=== PATIENT | female | born 1950 | race African-American/Black ===

== ENCOUNTER 2018-03-12 06:19 | Day surgery (SDC) | payer MEDICARE, OTHER ==
[~2018-03-12 06:19] MED LIST: BESIFLOXACIN HCL 0.6% OPH SUSP 5 ML BOTTLE OS PRN; BUPIVACAINE HCL 0.75% INJ/PF (7.5 MG/1 ML) 10 ML SDV OS PRN; KETOROLAC TROMETHAMINE 0.45% 4 DROP/0.4 ML DROPERETTE OS PRN; LIDOCAINE 4% INJ/PF (40 MG/ML) 5 ML AMPUL OS PRN
[2018-03-12] MEDS: TETRACAINE HCL 0.5% OPH SOLN 0.6 ML DROPERETTE OS PRN ×2 (06:51→07:18)
[2018-03-12] MEDS: CYCLOPENTOLATE 0.2%/PHENYLEPHRINE 1% OPH SOLN 2 ML OS PRN ×3 (06:52→07:18)
[2018-03-12] MEDS: TROPICAMIDE 1% OPH SOLN 3 ML OS PRN ×3 (06:52→07:18)
[2018-03-12] MEDS ORDERED: FENTANYL CITRATE INJ/PF 100 MCG/2 ML AMPUL ONE (06:53)
[2018-03-12] MEDS ORDERED: MIDAZOLAM 2 MG/2 ML INJ ONE (06:53)
[2018-03-12] MEDS: TOBRAMYCIN SULFATE/DEXAMETH OPH SUSP 2.5 ML ONE ×4 (06:53→07:57)
[2018-03-12] MEDS ORDERED: ONDANSETRON HCL INJ/PF 4 MG/2 ML SDV ONE (06:53)
[2018-03-12] MEDS ORDERED: LIDOCAINE 1% INJ-PF (10 MG/ML) 30 ML SDV ONE (07:10)
[2018-03-12] MEDS ORDERED: CHONDR SU A NA/HYALUR INTRAOC KIT (SURGICARE) ONE (07:10)
[2018-03-12] MEDS ORDERED: EPINEPHRINE INJ/PF 1 MG/1 ML AMPULE ONE (07:10)
--- NOTE | 2018-03-12 08:14 | [facility] DISCHARGE SUMMARY E ---
[facility] Discharge Summary NAME: JR MULLEN AGE: 67Y ADMITTED: 03/12/2018 DISCHARGED: 03/12/2018 HOSPITAL COURSE: The patient is a 67-year-old lady who underwent uneventful cataract extraction with intraocular lens implant left eye on 03/12/2018. She will be discharged to home. She is instructed to resume preoperative medications, take Tylenol as needed for discomfort, to keep her eye shielded, to use TobraDex and Ilevro at 3 p.m. and 8 p.m., and to follow up in my office in 1 day. DICTATING PHYSICIAN: JEFF NEGRETE M.D. [id number] PHY#: [id number] ID: [id number] JOB#: [id number] ACCT: [id number] cc:JEFF NEGRETE M.D. >
--- NOTE | 2018-03-12 08:14 | [facility] OPERATIVE REPORT E ---
[facility] Operative Report NAME: JR MULLEN AGE: 67Y DATE OF SURGERY: 03/12/2018 ROOM: PREOPERATIVE DIAGNOSIS: Cataract, left eye. POSTOPERATIVE DIAGNOSIS: Cataract, left eye. PROCEDURE PERFORMED: Phacoemulsification with posterior chamber intraocular lens, left eye. SURGEON: JEFF NEGRETE M.D. ANESTHESIA: Topical with MAC. INDICATIONS FOR SURGERY: Difficulty reading road signs and words on TV. Best corrected visual acuity 20/200. PROCEDURE: The patient was brought to the Operating Room and placed on the operative table. Following tetracaine drops, topical anesthesia was administered. This consisted of instrument wipe pledgets soaked in a solution of 4% Xylocaine mixed with 0.75% Marcaine in a 1:2 ratio. A 2 x 1 cm pledget was placed in the superior fornix. A 1 x 1 cm pledget was placed in the inferior fornix. The eye was patched shut for 5 minutes. The patch was removed. The eye was sterilely prepped and draped in the usual manner. Lid speculum was placed in the eye. The pledgets were removed. 4-0 black silk sutures were placed around the superior and the inferior rectus muscles to be used as traction. A conjunctival peritomy was made at the 10 o'clock position. Hemostasis was obtained with bipolar cautery. A posterior limbal groove was created using a crescent knife and dissected anteriorly towards the cornea. A sharp point blade was used to create a paracentesis site at the 2 o'clock position. A 2.4 mm keratome was used to enter the anterior chamber through the groove. Viscoelastic was injected into the anterior chamber. An anterior capsulotomy was performed using Utrata forceps in a capsulorrhexis fashion. Hydrodissection and hydrodelineation were performed. Phacoemulsification was performed in irtrul-tim-gttasoo technique. A total of 9.8 CDE phaco time was used. Following this, the I/A unit was used to remove residual cortex. Viscoelastic was injected into the capsular bag. Intraocular lens model SN60WF, 23.0 diopters, serial number [id number] was placed in the capsular bag. The I/A unit was used to remove residual viscoelastic. The wound was seen to be watertight under high and low pressure, and no sutures were placed. The intraocular lens was well centered. The pressure was adjusted in the eye to normal pressure. The 4-0 black silk sutures and lid speculum were removed. The patient tolerated the procedure well and was sent to the Recovery Room in good condition. A drop of TobraDex was placed in the left eye at the end of the surgery. DICTATING PHYSICIAN: JEFF NEGRETE M.D. [id number] PHY#: [id number] ID: [id number] JOB#: [id number] ACCT: [id number] cc:JEFF NEGRETE M.D. >
== END 2018-03-12 08:37 | disposition home or self-care (01) ==
LOC: SC 06:19
PROVIDERS: ATTEND Ophthalmology
DX: H25.813 Combined forms of age-related cataract, bilateral (principal); H43.811 Vitreous degeneration, right eye; E11.9 Type 2 diabetes mellitus without complications; I10 Essential (primary) hypertension; E78.00 Pure hypercholesterolemia, unspecified; M19.90 Unspecified osteoarthritis, unspecified site; J45.909 Unspecified asthma, uncomplicated; Z87.891 Personal history of nicotine dependence; Z88.1 Allergy status to other antibiotic agents; Z79.899 Other long term (current) drug therapy; Z79.84 Long term (current) use of oral hypoglycemic drugs; G47.33 Obstructive sleep apnea (adult) (pediatric)
CPT/HCPCS: 66984; 82962; V2632; J2250; J3490 ×5; A9270; J0171; J2405; 142; J3010

== ENCOUNTER 2018-04-02 08:49 | Day surgery (SDC) | payer MEDICARE ==
[~2018-04-02 08:49] MED LIST changes: -BESIFLOXACIN HCL 0.6% OPH SUSP 5 ML BOTTLE OS PRN; +BUPIVACAINE HCL 0.75% INJ/PF (7.5 MG/1 ML) 10 ML SDV OD PRN; -BUPIVACAINE HCL 0.75% INJ/PF (7.5 MG/1 ML) 10 ML SDV OS PRN; +CHONDR SU A NA/HYALUR INTRAOC KIT (SURGICARE) ONE; +EPINEPHRINE INJ/PF 1 MG/1 ML AMPULE ONE; +KETOROLAC TROMETHAMINE 0.45% 4 DROP/0.4 ML DROPERETTE OD PRN; -KETOROLAC TROMETHAMINE 0.45% 4 DROP/0.4 ML DROPERETTE OS PRN; +LIDOCAINE 1% INJ-PF (10 MG/ML) 30 ML SDV ONE; +LIDOCAINE 4% INJ/PF (40 MG/ML) 5 ML AMPUL OD PRN; -LIDOCAINE 4% INJ/PF (40 MG/ML) 5 ML AMPUL OS PRN; +TOBRAMYCIN SULFATE/DEXAMETH OPH SUSP 2.5 ML ONE
[2018-04-02] MEDS: TOBRAMYCIN SULFATE/DEXAMETH OPH SUSP 2.5 ML OD PRN ×5 (09:13→10:24)
[2018-04-02] MEDS: TROPICAMIDE 1% OPH SOLN 3 ML OD PRN ×3 (09:13→09:37)
[2018-04-02] MEDS: CYCLOPENTOLATE 0.2%/PHENYLEPHRINE 1% OPH SOLN 2 ML OD PRN ×3 (09:13→09:37)
[2018-04-02] MEDS: TETRACAINE HCL 0.5% OPH SOLN 0.6 ML DROPERETTE OD PRN ×2 (09:13→09:46)
[2018-04-02] MEDS ORDERED: FENTANYL CITRATE INJ/PF 100 MCG/2 ML AMPUL ONE (09:32)
[2018-04-02] MEDS ORDERED: MIDAZOLAM 2 MG/2 ML INJ ONE (09:32)
[2018-04-02] MEDS ORDERED: ONDANSETRON HCL INJ/PF 4 MG/2 ML SDV ONE (09:32)
--- NOTE | 2018-04-02 10:54 | [facility] DISCHARGE SUMMARY E ---
[facility] Discharge Summary NAME: JR MULLEN AGE: 67Y ADMITTED: 04/02/2018 DISCHARGED: 04/02/2018 FINAL DIAGNOSIS: Cataract, right eye. HOSPITAL COURSE: The patient is a 67-year-old lady who underwent uneventful cataract extraction with intraocular lens implant right eye on 04/02/2018. She will be discharged to home. She is instructed to resume preoperative medications, take Tylenol as needed for discomfort, to keep her eye shielded, to use TobraDex and Ilevro at 3 p.m. and 8 p.m. and to follow up in my office in 1 day. DICTATING PHYSICIAN: JEFF NEGRETE M.D. [id number] PHY#: [id number] ID: [id number] JOB#: [id number] ACCT: [id number] cc:JEFF NEGRETE M.D. >
--- NOTE | 2018-04-02 10:54 | [facility] OPERATIVE REPORT E ---
[facility] Operative Report NAME: JR MULLEN AGE: 67Y DATE OF SURGERY: 04/02/2018 ROOM: PREOPERATIVE DIAGNOSIS: Cataract, right eye. POSTOPERATIVE DIAGNOSIS: Cataract, right eye. PROCEDURE PERFORMED: Phacoemulsification with posterior chamber intraocular lens, right eye. SURGEON: JEFF NEGRETE M.D. ANESTHESIA: Topical with MAC. INDICATIONS FOR SURGERY: Difficulty reading road signs. Best corrected vision acuity 20/60. PROCEDURE: The patient was brought to the Operating Room and placed on the operative table. Following tetracaine drops, topical anesthesia was administered. This consisted of instrument wipe pledgets soaked in a solution of 4% Xylocaine mixed with 0.75% Marcaine in a 1:2 ratio. A 2 x 1 cm pledget was placed in the superior fornix. A 1 x 1 cm pledget was placed in the inferior fornix. The eye was patched shut for 5 minutes. The patch was removed. The eye was sterilely prepped and draped in the usual manner. Lid speculum was placed in the eye. The pledgets were removed. 4-0 black silk sutures were placed around the superior and the inferior rectus muscles to be used as traction. A conjunctival peritomy was made at the 10 o'clock position. Hemostasis was obtained with bipolar cautery. A posterior limbal groove was created using a crescent knife and dissected anteriorly towards the cornea. A sharp point blade was used to create a paracentesis site at the 2 o'clock position. A 2.4 mm keratome was used to enter the anterior chamber through the groove. Viscoelastic was injected into the anterior chamber. An anterior capsulotomy was performed using Utrata forceps in a capsulorrhexis fashion. Hydrodissection and hydrodelineation were performed. Phacoemulsification was performed in hnsqtv-ttj-hqzeosy technique. A total of 4.67 CDE phaco time was used. Following this, the I/A unit was used to remove residual cortex. Viscoelastic was injected into the capsular bag. Intraocular lens model SN60WF, 22.5 diopters, serial number [id number] was placed in the capsular bag. The I/A unit was used to remove residual viscoelastic. The wound was seen to be watertight under high and low pressure, and no sutures were placed. The intraocular lens was well centered. The pressure was adjusted in the eye to normal pressure. The 4-0 black silk sutures and lid speculum were removed. The eye was shielded after Besivance drops were placed. The patient tolerated the procedure well and was sent to the Recovery Room in good condition. DICTATING PHYSICIAN: JEFF NEGRETE M.D. [id number] PHY#: [id number] ID: [id number] JOB#: [id number] ACCT: [id number] cc:JEFF NEGRETE M.D. >
== END 2018-04-02 10:59 | disposition home or self-care (01) ==
LOC: SC 08:49
PROVIDERS: ATTEND Ophthalmology
DX: H25.811 Combined forms of age-related cataract, right eye (principal); Z96.1 Presence of intraocular lens; E11.9 Type 2 diabetes mellitus without complications; I10 Essential (primary) hypertension; F17.210 Nicotine dependence, cigarettes, uncomplicated; Z79.84 Long term (current) use of oral hypoglycemic drugs; Z79.899 Other long term (current) drug therapy
CPT/HCPCS: 66984; 82962; V2632; J2250; J3490 ×5; A9270; J0171; J2405; 142; J3010

== ENCOUNTER → 2019-08-05 | Outpatient (CLI) | payer MEDICARE ==
--- NOTE | 2019-08-05 14:22 | RADIOLOGY REPORT (SQ) ---
EXAM DESCRIPTION: CHEST PA/LATERAL COMPLETED DATE/TIME: 08/05/2019 2:10 pm REASON FOR STUDY: PRE-OP COMPARISON: None. EXAM PARAMETERS: NUMBER OF VIEWS: two views TECHNIQUE: Digital Frontal and Lateral radiographic views of the chest acquired. RADIATION DOSE: NA LIMITATIONS: none FINDINGS: LUNGS AND PLEURA: No opacities, masses or pneumothorax. No pleural effusion. MEDIASTINUM AND HILAR STRUCTURES: No masses or contour abnormalities. HEART AND VASCULAR STRUCTURES: Heart normal size. No evidence for failure. BONES: Mild scoliosis. HARDWARE: Sternotomy wires. OTHER: No other significant finding. IMPRESSION: NO SIGNIFICANT RADIOGRAPHIC FINDING IN THE CHEST. TECHNICAL DOCUMENTATION: JOB ID: [id number] [employer]- All Rights Reserved Reading location - IP/workstation name: [email or web address]
[2019-08-05 14:40] LABS: ABSOLUTE LYMPHOCYTES (AUTO) 2.1 10^3/uL (0.5-4.7); ABSOLUTE MONOCYTES (AUTO) 0.5 10^3/uL (0.1-1.4); ABSOLUTE NEUT (AUTO) 2.3 10^3/uL (1.7-8.2); BASOPHILS % (AUTO) 0.3 % (0-2); EOSINOPHILS % (AUTO) 0.8 % (0-6); HEMATOCRIT 38.9 % (36.0-47.0); LYMPHOCYTES % (AUTO) 42.2 % (13-45); MEAN CORPUSCULAR HEMOGLOBIN 32.2 pg (27.0-33.4); MEAN CORPUSCULAR HGB CONC 33.5 g/dL (32.0-36.0); MEAN CORPUSCULAR VOLUME 96 fl (80-97); MONOCYTES % (AUTO) 10.8 % (3-13); PLATELET COUNT 216 10^3/uL (150-450); RED BLOOD COUNT 4.04 10^6/uL (3.72-5.28); RED CELL DISTRIBUTION WIDTH 13.3 % (11.5-14.0); SEGMENTED NEUTROPHILS % (AUTO) 45.9 % (42-78); TOTAL CELLS COUNTED % (AUTO) 100 %
[2019-08-05 14:48] LABS: APPEARANCE,URINE SLIGHTLY-CLOUDY; BILIRUBIN,URINE NEGATIVE (NEGATIVE); COLOR,URINE YELLOW; GLUCOSE, URINE NEGATIVE (NEGATIVE); KETONES,URINE NEGATIVE (NEGATIVE); PROTEIN,URINE NEGATIVE (NEGATIVE); UROBILINOGEN,URINE NEGATIVE mg/dL (<2.0)
[2019-08-05 15:04] LABS: ALBUMIN 4.3 g/dL (3.5-5.0); ANION GAP 8 (5-19); BLOOD UREA NITROGEN 17 mg/dL (7-20); CALCIUM 9.9 mg/dL (8.4-10.2); CARBON DIOXIDE 32 mmol/L (22-30); CHLORIDE 103 mmol/L (98-107); GLUCOSE 96 mg/dL (75-110); POTASSIUM 4.7 mmol/L (3.6-5.0)
[2019-08-05 15:09] LABS: PREALBUMIN 23.8 mg/dL (17.6-36.0)
[2019-08-05 15:10] LABS: C-REACTIVE PROTEIN < 5.0 mg/L (<10.0)
[2019-08-05 15:19] LABS: ERYTHROCYTE SEDIMENTATION RATE 25 mm/hr (0-30)
--- NOTE | 2019-08-05 18:20 | EKG REPORT ---
SEVERITY:- ABNORMAL ECG - SINUS RHYTHM RBBB AND LAFB LEFT VENTRICULAR HYPERTROPHY : Confirmed by: Anthony Black MD 05-Aug-2019 18:20:05
== END ==
LOC: OD 13:20
PROVIDERS: ATTEND Orthopaedic Surgery
DX: Z01.810 Encounter for preprocedural cardiovascular examination (principal); Z01.818 Encounter for other preprocedural examination; I10 Essential (primary) hypertension; Z01.812 Encounter for preprocedural laboratory examination; R39.15 Urgency of urination
CPT/HCPCS: 36415; 71046; 80048; 81001; 82040; 82306; 84134; 85025; 85652; 86140; 87086; 93005; 93010

== ENCOUNTER 2019-08-28 07:05 | Inpatient (IN) | payer MEDICARE ==
[2019-09-02] MEDS ORDERED: ONDANSETRON HCL INJ/PF 4 MG/2 ML SDV IV PRN ×2 (05:00→14:37)
[2019-09-02] MEDS ORDERED: VANCOMYCIN HCL 1,000 MG in DEXTROSE 5%-WATER 250 ML IV PRN (05:00)
[2019-09-02] MEDS ORDERED: LIDOCAINE 0.5% INJ-PF (5 MG/ML) 50 ML SDV SUBCUT PRN (05:00)
[2019-09-02] MEDS ORDERED: ACETAMINOPHEN 325 MG TABLET PO PRN (05:00)
[2019-09-02] MEDS ORDERED: TRAMADOL HCL 50 MG TABLET PO PRN (05:00)
[2019-09-02] MEDS ORDERED: CEFAZOLIN SODIUM 2 GM in DEXTROSE 5%-WATER 100 ML IV PRN (05:00)
[2019-09-02] MEDS ORDERED: GABAPENTIN 100 MG CAPSULE PO PRN (05:00)
[2019-09-02] MEDS ORDERED: LACTATED RINGERS 1000 ML IV PRN (05:00)
[2019-09-02] MEDS ORDERED: CELECOXIB 200 MG CAPSULE PO PRN (05:00)
[2019-09-02] MEDS ORDERED: OXYCODONE HCL SR 10 MG TABLET PO PRN (05:00)
[2019-09-02] MEDS ORDERED: TRANEXAMIC ACID INJ/PF 1,000 MG/10 ML SDV IV PRN (05:00)
[2019-09-02] MEDS ORDERED: CELECOXIB 200 MG CAPSULE ONE (05:41)
[2019-09-02] MEDS ORDERED: ACETAMINOPHEN 325 MG TABLET ONE (05:41)
[2019-09-02] MEDS ORDERED: TRAMADOL HCL 50 MG TABLET ONE (05:41)
[2019-09-02] MEDS ORDERED: OXYCODONE HCL SR 10 MG TABLET PO ONE (05:42)
[2019-09-02] MEDS ORDERED: GABAPENTIN 100 MG CAPSULE ONE (05:42)
[2019-09-02] MEDS ORDERED: ONDANSETRON HCL INJ/PF 4 MG/2 ML SDV ONE ×2 (05:42→11:21)
[2019-09-02] MEDS ORDERED: LIDOCAINE 2% INJ-PF (20 MG/ML) 10 ML AMPUL ONE (11:20)
[2019-09-02] MEDS ORDERED: FENTANYL CITRATE INJ/PF 100 MCG/2 ML AMPUL ONE (11:21)
[2019-09-02] MEDS ORDERED: MIDAZOLAM 2 MG/2 ML INJ ONE (11:21)
[2019-09-02] MEDS ORDERED: EPHEDRINE SULFATE INJ 50 MG/1 ML AMPULE ONE (11:21)
[2019-09-02] MEDS ORDERED: PROPOFOL INJ 200 MG/20 ML VIAL IV ONE ×2 (11:22→15:30)
[2019-09-02] MEDS ORDERED: BUPIVACAINE HCL 0.25 % INJ/PF (2.5 MG/1 ML) 30 ML VIAL ONE (11:24)
[2019-09-02] MEDS ORDERED: GENTAMICIN SULFATE INJ 80 MG/2 ML VIAL ONE ×2 (11:24→14:55)
[2019-09-02] MEDS ORDERED: VANCOMYCIN HCL INJ 1000 MG VIAL ONE (11:24)
[2019-09-02] MEDS ORDERED: LIDOCAINE 1% INJ-PF (10 MG/ML) 30 ML SDV ONE (11:24)
[2019-09-02] MEDS ORDERED: BACITRACIN INJ 50,000 UNIT VIAL ONE ×2 (11:25→14:55)
[2019-09-02] MEDS ORDERED: KETOROLAC TROMETHAMINE 60 MG/2 ML SDV ONE (11:26)
[2019-09-02] MEDS ORDERED: PHENYLEPHRINE HCL INJ/PF 10 MG/1 ML SDV ONE (11:52)
[2019-09-02] MEDS ORDERED: DEXAMETHASONE SOD PHOSPHATE INJ 4 MG/1 ML VIAL ONE (11:52)
[2019-09-02 12:56] LABS: POTASSIUM 3.9 mmol/L (3.6-5.0)
[2019-09-02] MEDS ORDERED: EPINEPHRINE INJ/PF 1 MG/1 ML AMPULE ONE (13:10)
[2019-09-02] MEDS ORDERED: DIPHENHYDRAMINE HCL 50 MG/ML VIAL IV PRN (14:37)
[2019-09-02] MEDS ORDERED: FENTANYL CITRATE INJ/PF 100 MCG/2 ML AMPUL IV PRN ×3 (14:37)
[2019-09-02] MEDS ORDERED: PROMETHAZINE HCL INJ 25 MG/1 ML VIAL IV PRN ×2 (14:37)
--- NOTE | 2019-09-02 16:43 | Operative Report ---
Operative Report DATE OF SURGERY: 09/02/19 PREOPERATIVE DIAGNOSIS: Right primary hip osteoarthritis POSTOPERATIVE DIAGNOSIS: Right primary hip osteoarthritis OPERATION: Right total hip arthroplasty SURGEON: DEMARCUS MEZA JR ANESTHESIA: Spinal COMPLICATIONS: None ESTIMATED BLOOD LOSS: 300 cc PROCEDURE: Implants: Aditya Accolade 2 #3, Biolox delta ceramic head 36 mm 0 neck length, 36 mm standard polyethylene insert, 48 mm Trident 2 acetabular shell BRIEF HISTORY: 69year old female with severe degenerative arthritis of right hip, which has failed conservative treatment and has elected for a total hip arthroplasty. Risks include but are not limited to bleeding, infection, anesthesia, , injury to nerve or vessel, pain, scar, leg length inequality, dislocation, future surgery, and blood clots. Patient read through the pre-op counseling form and signed and solicited for surgery on their right hip. OPERATIVE PROCEDURE: Patient was brought to the operating room on and underwent spinal anesthesia. 2 grams of Ancef and 1 g of vancomycin was given. After proper anesthesia was obtained, patient was positioned, padded, prepped, and draped in the usual sterile fashion on the operating room table. Appropriate time out was performed. A anterior approach to the hip was undertaken with meticulous hemostasis. The femoral neck was cut in line with the femoral broach and the femoral head was removed. The acetabulum was then exposed with three retractors in an atraumatic fashion. Soft tissue and osteophytes were removed. Medialization reaming was performed followed by anatomic reaming up to accept a 48 mm acetabulum. The 48 mm acetabulum was impacted into correct position and stability checked with Stephanie test. Due to her severe lumbar spine disease decided to trial her liner to establish stability with the consideration of potentially going to a dual mobility construct. A standard 36 mm liner trial was placed we turned our attention to the femur. Attention was then directed toward the femur, which was exposed with two retractors in an atraumatic fashion. square cutter, lateralization rasping and then broaching up to accept a #3 femur. With a standard offset neck and a -2.5 head, stability was good in flexion and extension with near equal leg lengths. A final 36 mm standard liner was impacted into the shell with good stability. Potential impinging osteophytes were removed. The real #3 standard offset femur was impacted into a copiously irrigated femoral canal. This was again trialed with an -2.5 head, which was stable aside from slightly excessive shuck. We then trialed a standard neck length head, she had excellent stability and equal leg lengths. A 0 length 36 mm head was impacted on a clean dry femoral taper. The hip was irrigated and reduced, further irrigation with antibiotic solution, betadine solution, then antibiotic solution. Bleeders were coagulated with bovie cautery. The fascia was then closed with number 2 Stratofix; the large adipose layer was closed with 2 strata fix, subcutaneous was tissue closed with 2-0 Vicryl then running 3-0 monocryl subcuticular. Dermabond skin glue was applied followed by a silver dressing. Throughout the procedure prior to insertion of final implants the wound was irrigated with antibiotic solution as well as allowing for Aricept soaks, this was done at least 3 times. All needle sponge and instrument counts were correct. Patient was awakened from sedation anesthesia and taken to recovery room in good condition. Thank you, Demarcus Meza, DO
[2019-09-02] MEDS ORDERED: OXYCODONE HCL IR 5 MG TABLET PO PRN (16:55)
[2019-09-02] MEDS ORDERED: MORPHINE SULFATE 10 MG/ML INJ IV PRN (16:55)
[2019-09-02] MEDS ORDERED: DIPHENHYDRAMINE HCL 25 MG CAPSULE PO PRN (16:59)
[2019-09-02] MEDS ORDERED: ZOLPIDEM TARTRATE 5 MG TABLET PO PRN (17:00)
[2019-09-02] MEDS ORDERED: NORMAL SALINE 1000 ML 1,000 ML IV PRN (17:01)
[2019-09-02] MEDS ORDERED: DOCUSATE SODIUM 100 MG CAPSULE PO PRN (17:01)
[2019-09-02] MEDS ORDERED: ONDANSETRON 4 MG TAB.RAPDIS PO PRN (17:02)
--- NOTE | 2019-09-02 17:23 | RADIOLOGY REPORT (SQ) ---
EXAM DESCRIPTION: NO CHG FLUORO; HIP IN OPERATING RM COMPLETED DATE/TIME: 09/02/2019 4:10 pm REASON FOR STUDY: RIGHT HIP ARTHROPLASTY ASST WITH FLUORO IN OR M25.551 PAIN IN RIGHT HIP COMPARISON: None. FLUOROSCOPY TIME: 0.1 seconds 2 Images saved to PACS TECHNIQUE: Intra-operative images acquired during surgical procedure to evaluate progress. NUMBER OF IMAGES: 2 images LIMITATIONS: None. FINDINGS: Limited fluoroscopic images obtained to evaluate progress. Please see operative report fo r detailed description. IMPRESSION: IMAGE(S) OBTAINED DURING PROCEDURE. COMMENT: Quality ID [id number]: Final reports for procedures using fluoroscopy that document radiation exp osure indices, or exposure time and number of fluorographic images (if radiation exposure indices are not available) Please consult full operative report of the attending physician for description of the procedure. TECHNICAL DOCUMENTATION: JOB ID: [id number] [employer]- All Rights Reserved Reading location - IP/workstation name: [email or web address]
--- NOTE | 2019-09-02 17:23 | RADIOLOGY REPORT (SQ) ---
EXAM DESCRIPTION: NO CHG FLUORO; HIP IN OPERATING RM COMPLETED DATE/TIME: 09/02/2019 4:10 pm REASON FOR STUDY: RIGHT HIP ARTHROPLASTY ASST WITH FLUORO IN OR M25.551 PAIN IN RIGHT HIP COMPARISON: None. FLUOROSCOPY TIME: 0.1 seconds 2 Images saved to PACS TECHNIQUE: Intra-operative images acquired during surgical procedure to evaluate progress. NUMBER OF IMAGES: 2 images LIMITATIONS: None. FINDINGS: Limited fluoroscopic images obtained to evaluate progress. Please see operative report fo r detailed description. IMPRESSION: IMAGE(S) OBTAINED DURING PROCEDURE. COMMENT: Quality ID 145: Final reports for procedures using fluoroscopy that document radiation exp osure indices, or exposure time and number of fluorographic images (if radiation exposure indices are not available) Please consult full operative report of the attending physician for description of the procedure. TECHNICAL DOCUMENTATION: JOB ID: [id number] [employer]- All Rights Reserved Reading location - IP/workstation name: [email or web address]
[2019-09-02] MEDS ORDERED: DEXTROSE 50%-WATER 25 GM/50 ML DISP.SYRIN IV ONE (17:24)
[2019-09-02] MEDS ORDERED: MEPERIDINE HCL/PF INJ 25 MG/1 ML DISP.SYRIN ONE (17:25)
[2019-09-02] MEDS ORDERED: PANTOPRAZOLE SODIUM 20 MG TABLET.DR PO PRN (17:30)
--- NOTE | 2019-09-02 17:31 | RADIOLOGY REPORT (SQ) ---
EXAM DESCRIPTION: HIP RIGHT AP/LATERAL COMPLETED DATE/TIME: 09/02/2019 5:07 pm REASON FOR STUDY: POST OP M25.551 PAIN IN RIGHT HIP COMPARISON: None. NUMBER OF VIEWS: Two views. TECHNIQUE: AP pelvis and additional frog-leg view of the right hip. LIMITATIONS: None. FINDINGS: MINERALIZATION: Normal. RIGHT HIP: Arthroplasty in good position. No acute fracture or dislocation. LEFT HIP: No fracture or dislocation. No worrisome bone lesions. PUBIS AND ISCHIUM: No fracture. PELVIS: No fracture. SACRUM: No fracture or dislocation. No worrisome bone lesions. LOWER LUMBAR SPINE: No fracture or dislocation. No worrisome bone lesions. No significant disc disea se. SOFT TISSUES: There appears to be some air in the soft tissues of the right hip and lateral proximal right thigh. OTHER: No other significant finding. IMPRESSION: Right hip arthroplasty. There is some air in the soft tissues. Correlate for infection . TECHNICAL DOCUMENTATION: JOB ID: [id number] [employer]- All Rights Reserved Reading location - IP/workstation name: [email or web address]
[2019-09-02] MEDS ORDERED: RINGERS SOLUTION,LACTATED 500 ML IV ONE (19:45)
[2019-09-02] MEDS ORDERED: CEFAZOLIN INJ 1 GM VIAL ONE (21:39)
[2019-09-02] MEDS ORDERED: ATORVASTATIN CALCIUM 40 MG TABLET PO SCH (22:00)
[2019-09-02] MEDS: CEFAZOLIN SODIUM 2 GM in DEXTROSE 5%-WATER 100 ML IV SCH (22:53)
[2019-09-02] MEDS: ACETAMINOPHEN 325 MG TABLET PO SCH (22:55)
[2019-09-02] MEDS: TRAMADOL HCL 50 MG TABLET PO SCH ×2 (22:56)
[2019-09-02] MEDS: KETOROLAC TROMETHAMINE INJ/PF 30 MG/1 ML SDV IV SCH (22:56)
[2019-09-02] MEDS: METOPROLOL TARTRATE 25 MG TABLET PO SCH (22:58)
[2019-09-02] MEDS: GABAPENTIN 100 MG CAPSULE PO SCH (22:58)
[2019-09-03] MEDS: TRAMADOL HCL 50 MG TABLET PO SCH ×3 (03:27→09:14)
[2019-09-03] MEDS ORDERED: IPRATROPIUM/ALBUTEROL 0.5-2.5 MG/3 ML AMPUL NEB PRN (04:03)
--- NOTE | 2019-09-03 04:03 | PDOC CONSULTATION ---
Consultation Consult Date: 09/02/19 Attending physician:: DORIS MEZA JR Provider Consulted: ALYCE TOBAR Consult reason:: htn History of Present Illness Admission Date/PCP: 09/02/19 10:36 CHRIS JANG Patient complains of: Right hip pain History of Present Illness: JR MULLEN is a 69 year old female with a past medical history of right hip osteoarthritis is admitted by orthopedic surgery for voluntary right hip arthroplasty. Postoperatively hospitalist is consulted for chronic medical conditions of coronary artery disease, hypertension, obstructive sleep apnea and dyslipidemia. Postoperatively patient currently denies pain, shortness of breath or palpitations. She denies recent change in outpatient pressure medications. No nursing issues. Past Medical History Cardiac Medical History: Reports: Atrial Fibrillation, Hyperlipidema, Hypertension Denies: Congestive Heart Failure, Coronary Artery Disease, Myocardial Infarction - STENT-BLOCKAGE , Peripheral Vascular Disease, Pulmonary Embolism, Heart Murmur Pulmonary Medical History: Reports: Asthma - YEARS AGO, Sleep Apnea - doesn't use CPAP Denies: Bronchitis, Chronic Obstructive Pulmonary Disease (COPD), Pneumonia, Respiratory Failure, Tuberculosis Neurological Medical History: Denies: Seizures Endocrine Medical History: Reports: Obesity Denies: Hyperthyroidism, Hypothyroidism Malignancy Medical History: Denies: Lung Cancer GI Medical History: Reports: Gastroesophageal Reflux Disease Denies: Crohn's Disease, Hepatitis, Hiatal Hernia Musculoskeltal Medical History: Reports: Arthritis Denies: Fibromyalgia Psychiatric Medical History: Denies: Bipolar Disorder, Depression, Post Traumatic Stress Disorder Hematology: Denies: Anemia, Sickle Cell Disease Past Surgical History Past Surgical History: Reports: Coronary Artery Bypass Graft - triple 10/2017 at [facility], Tubal Ligation Denies: Amputation, Appendectomy, Section, Cholecystectomy, Colostomy, Gastric Bypass Surgery, Herniorrhaphy, Hysterectomy, Mastectomy, Pacemaker, Tonsillectomy Social History Information Source: Patient, [facility] Records Smoking Status: Former Smoker Hx Recreational Drug Use: No Hx Prescription Drug Abuse: No - Advance Directive Resuscitation Status: Full Code Family History Family History: Hypertension Parental Family History Reviewed: Yes Children Family History Reviewed: Yes Sibling(s) Family History Reviewed.: Yes Medication/Allergy Home Medications: Atorvastatin Calcium 40 mg PO QHS 03/05/18 Cholecalciferol (Vitamin D3) [Vitamin D3 1000 Unit Tablet] 1,000 unit PO DAILY 03/05/18 Cyanocobalamin (Vitamin B-12) [Vitamin B12] 1,000 mcg PO DAILY 03/05/18 Liraglutide [Victoza 2-Tacho] 1.8 mg SQ QHS 03/05/18 Potassium Chloride [Klor-Con 10] 10 meq PO ASDIR PRN 03/05/18 Aspirin [Aspirin 81 mg Chewable Tablet] 81 mg PO DAILY 08/18/19 Metoprolol Tartrate [Lopressor 25 mg Tablet] 25 mg PO Q12 08/18/19 Omeprazole Magnesium [Prilosec Otc] 20 mg PO DAILY 08/18/19 Furosemide [Lasix 20 mg Tablet] 20 mg PO QAM 09/02/19 Allergies/Adverse Reactions: iodine Allergy (Severe, Verified 08/18/19 10:39) Difficulty breathing shellfish derived Allergy (Severe, Verified 08/18/19 10:39) Difficulty breathing clindamycin Allergy (Intermediate, Verified 08/18/19 10:40) Swelling of Throat amoxicillin [From Augmentin] Allergy (Mild, Verified 08/18/19 10:39) GI upset ciprofloxacin Allergy (Mild, Verified 08/18/19 10:39) GI upset clavulanic acid [From Augmentin] Allergy (Mild, Verified 08/18/19 10:39) GI upset sulfamethoxazole [From Septra] Allergy (Mild, Verified 08/18/19 10:39) GI upset trimethoprim [From Septra] Allergy (Mild, Verified 08/18/19 10:39) GI upset Review of Systems ROS unobtainable: Due to mental status - Sedated Physical Exam Vital Signs: Temp Pulse Resp BP Pulse Ox 97.4 F 82 20 102/43 L 100 09/02/19 21:30 09/02/19 21:30 09/02/19 21:30 09/02/19 21:30 09/02/19 21:30 Intake & Output 09/01/19 09/02/19 09/03/19 11:59 11:59 11:59 Intake Total 0 3800 Output Total 1300 Balance 0 2500 Weight 95 kg General appearance: PRESENT: no acute distress, well-developed, well-nourished Head exam: PRESENT: atraumatic, normocephalic Eye exam: PRESENT: conjunctiva pink, EOMI, PERRLA. ABSENT: scleral icterus Ear exam: PRESENT: normal external ear exam Mouth exam: PRESENT: moist, tongue midline Neck exam: ABSENT: carotid bruit, JVD, lymphadenopathy, thyromegaly Respiratory exam: PRESENT: clear to auscultation macy. ABSENT: rales, rhonchi, wheezes Cardiovascular exam: PRESENT: RRR. ABSENT: diastolic murmur, rubs, systolic murmur Pulses: PRESENT: normal dorsalis pedis pul Vascular exam: PRESENT: normal capillary refill GI/Abdominal exam: PRESENT: normal bowel sounds, soft. ABSENT: distended, guarding, mass, organolmegaly, rebound, tenderness Rectal exam: PRESENT: deferred Extremities exam: PRESENT: full ROM. ABSENT: calf tenderness, clubbing, pedal edema Neurological exam: PRESENT: alert, awake, oriented to person, oriented to place, oriented to time, oriented to situation, CN II-XII grossly intact. ABSENT: motor sensory deficit Psychiatric exam: PRESENT: appropriate affect, normal mood. ABSENT: homicidal ideation, suicidal ideation Skin exam: PRESENT: dry, intact, warm. ABSENT: cyanosis, rash Results Laboratory Results: 09/02/19 12:20 09/02/19 09/02/19 12:20 12:33 Potassium 3.9 Glucose 124 H Blood Type A POSITIVE Antibody Screen NEGATIVE Impressions: Fluoroscopy 09/02/19 00:00 IMPRESSION: IMAGE(S) OBTAINED DURING PROCEDURE. Hip X-Ray 09/02/19 00:00 IMPRESSION: IMAGE(S) OBTAINED DURING PROCEDURE. Hip/Pelvis X-Ray 09/02/19 16:45 IMPRESSION: Right hip arthroplasty. There is some air in the soft tissues. Correlate for infection. Assessment and Plan - Diagnosis (1) Hypertension Is this a current diagnosis for this admission?: Yes Plan: Lopressor and as needed hydralazine (2) Coronary artery disease Is this a current diagnosis for this admission?: Yes Plan: Lopressor and aspirin (3) Obstructive sleep apnea Is this a current diagnosis for this admission?: Yes Plan: BiPAP while asleep, avoid excessive narcotic sedation. (4) Dyslipidemia Is this a current diagnosis for this admission?: Yes Plan: Statin (5) History of arthroplasty of right hip Is this a current diagnosis for this admission?: Yes Plan: Defer to surgery - Time Time Spent with patient: 15-24 minutes
[2019-09-03] MEDS: KETOROLAC TROMETHAMINE INJ/PF 30 MG/1 ML SDV IV SCH ×2 (04:21→09:12)
[2019-09-03] MEDS ORDERED: CEFAZOLIN INJ 1 GM VIAL ONE (04:26)
[2019-09-03] MEDS ORDERED: DEXTROSE 40% GEL 15 GM TUBE X 2 PO PRN (05:30)
[2019-09-03] MEDS: CEFAZOLIN SODIUM 2 GM in DEXTROSE 5%-WATER 100 ML IV SCH (05:30)
[2019-09-03] MEDS ORDERED: DEXTROSE 50%-WATER SYRINGE 25 GM/50 ML DOSE IV PRN (05:30)
[2019-09-03] MEDS ORDERED: GLUCAGON,HUMAN RECOMB 1 MG INJ IM PRN (05:30)
[2019-09-03] MEDS ORDERED: DEXTROSE 50%-WATER SYRINGE 12.5 GM/25 ML DOSE IV PRN (05:30)
[2019-09-03] MEDS ORDERED: DEXTROSE 40% GEL 15 GM TUBE PO PRN (05:30)
[2019-09-03] MEDS: ACETAMINOPHEN 325 MG TABLET PO SCH (05:31)
--- NOTE | 2019-09-03 07:26 | PDOC PROGRESS REPORT ---
Subjective Progress Note for:: 09/03/19 Subjective:: She is doing very well this morning. Up to the bathroom with occupational therapy and tolerating ambulation well. Pain is well controlled but present. Reason For Visit: S/P R KESHAV Physical Exam Vital Signs: Temp Pulse Resp BP Pulse Ox 97.9 F 80 20 108/49 L 97 09/03/19 03:00 09/03/19 03:00 09/03/19 03:00 09/03/19 03:00 09/03/19 04:03 Intake & Output 09/02/19 09/03/19 09/04/19 06:59 06:59 06:59 Intake Total 3900 Output Total 1300 Balance 2600 Weight 95 kg Physical Exam: General appearance: PRESENT: no acute distress, cooperative, well-nourished, obese Head exam: PRESENT: atraumatic, normocephalic Eye exam: PRESENT: EOMI Ear exam: PRESENT: normal external ear exam Mouth exam: PRESENT: neck supple Neck exam: ABSENT: tracheal deviation Respiratory exam: PRESENT: symmetrical, unlabored. ABSENT: accessory muscle use, wheezes Pulses: PRESENT: normal radial pulses, normal dorsalis pedis pul Vascular exam: PRESENT: normal capillary refill GI/Abdominal exam: ABSENT: distended, firm Extremities exam: PRESENT: full ROM of bilateral shoulders, elbows wrists, knees, hips and ankles without pain Musculoskeletal exam: PRESENT: full ROM, normal inspection Neurological exam: PRESENT: alert, awake, oriented to person, oriented to place, oriented to time Psychiatric exam: PRESENT: appropriate affect. ABSENT: agitated Focused psych exam: ABSENT: catatonic Skin exam: PRESENT: intact. ABSENT: dry All as above aside from that noted in the HPI and the following: - Right lower extremity without deformity -Pulses 2+ distally -Compartments soft -Wound clean dry and intact no drainage in appropriate swelling for postop day -Sensation grossly intact to L3-4-5 S1 -Motor grossly intact to EHL TA gastroc and quad Results Laboratory Results: 09/02/19 12:20 09/02/19 09/02/19 12:20 12:33 Potassium 3.9 Glucose 124 H Blood Type A POSITIVE Antibody Screen NEGATIVE Impressions: Fluoroscopy 09/02/19 00:00 IMPRESSION: IMAGE(S) OBTAINED DURING PROCEDURE. Hip X-Ray 09/02/19 00:00 IMPRESSION: IMAGE(S) OBTAINED DURING PROCEDURE. Hip/Pelvis X-Ray 09/02/19 16:45 IMPRESSION: Right hip arthroplasty. There is some air in the soft tissues. Correlate for infection. Assessment & Plan - Diagnosis (1) History of arthroplasty of right hip Is this a current diagnosis for this admission?: Yes Plan: - 2 doses of Ancef postoperatively q 8 hours to complete 24 hours perioperatively -Weightbearing as tolerated, no precautions, encourage out of bed NOY for ADL training - PT/OT -aspirin 325 daily for DVT prophylaxis for 6 weeks -multimodal pain management to avoid excessive narcotics, including gabapentin, tramadol, Toradol, acetaminophen. -Dressing should not be removed for 7 to 10 days until seen in the office -May shower with the dressing intact, if it starts to come off she should not get the incision wet. -I would like to follow the patient my office within the next 7 to [address] [place] [address]. in [place] office #: [phone] -She had some postoperative hypotension overnight, much improved today. Received a bolus of 500 lactated Ringer's yesterday. Would hold blood pressure medication this morning. -Likely okay for discharge today depending on her continued stable vital signs through lunchtime. - Time Time Spent with patient: 15-24 minutes
[2019-09-03] MEDS ORDERED: PANTOPRAZOLE SODIUM 20 MG TABLET.DR PO SCH (08:00)
[2019-09-03] MEDS ORDERED: IPRATROPIUM/ALBUTEROL 0.5-2.5 MG/3 ML AMPUL NEB SCH (08:00)
[2019-09-03] MEDS ORDERED: FUROSEMIDE 20 MG TABLET PO SCH (08:00)
[2019-09-03] MEDS ORDERED: POTASSIUM CHLORIDE 10 MEQ CAPSULE.ER PO PRN (08:07)
[2019-09-03] MEDS: INSULIN LISPRO 100 UNIT/ML 3 ML VIAL SUBCUT SCH ×2 (08:16→12:27)
[2019-09-03 08:18] VITALS: BP 109/48
[2019-09-03] MEDS: GABAPENTIN 100 MG CAPSULE PO SCH (09:11)
[2019-09-03] MEDS: METOPROLOL TARTRATE 25 MG TABLET PO SCH (09:14)
[2019-09-03] MEDS ORDERED: ASPIRIN 325 MG TABLET PO SCH (10:00)
[2019-09-03] MEDS ORDERED: CELECOXIB 200 MG CAPSULE PO SCH (10:00)
[2019-09-03] MEDS ORDERED: CYANOCOBALAMIN (VITAMIN B-12) 1,000 MCG TABLET PO SCH (10:00)
[2019-09-03] MEDS ORDERED: CHOLECALCIFEROL (D3) 1,000 UNIT (25 MCG) TABLET PO SCH (10:00)
[2019-09-03] MEDS ORDERED: POLYETHYLENE GLYCOL 3350 POWDER 17 GM/1 PACKET PO SCH (10:00)
--- NOTE | 2019-09-03 15:25 | PDOC PROGRESS REPORT ---
Subjective Progress Note for:: 09/03/19 Subjective:: Saw patient at bedside. Patient currently states that she feels well. She denies any shortness of breath chest pain fever chills nausea or vomiting. Reason For Visit: RIGHT TOTAL HOP Physical Exam Vital Signs: Temp Pulse Resp BP Pulse Ox 99.9 F 90 18 109/48 L 90 L 09/03/19 12:30 09/03/19 12:30 09/03/19 12:30 09/03/19 12:30 09/03/19 12:30 Intake & Output 09/02/19 09/03/19 09/04/19 06:59 06:59 06:59 Intake Total 3900 Output Total 1300 Balance 2600 Weight 95 kg General appearance: PRESENT: no acute distress, cooperative Eye exam: PRESENT: EOMI Mouth exam: PRESENT: moist Neck exam: ABSENT: JVD, tracheal deviation Respiratory exam: PRESENT: clear to auscultation macy Cardiovascular exam: PRESENT: RRR, +S1, +S2. ABSENT: tachycardia Vascular exam: ABSENT: pallor GI/Abdominal exam: PRESENT: normal bowel sounds, soft. ABSENT: distended, firm, tenderness Rectal exam: PRESENT: deferred Extremities exam: ABSENT: calf tenderness Musculoskeletal exam: PRESENT: ambulatory Neurological exam: PRESENT: alert, awake, oriented to person, oriented to place, oriented to time, oriented to situation Psychiatric exam: ABSENT: agitated Results Laboratory Results: 09/02/19 12:20 Impressions: Fluoroscopy 09/02/19 00:00 IMPRESSION: IMAGE(S) OBTAINED DURING PROCEDURE. Hip X-Ray 09/02/19 00:00 IMPRESSION: IMAGE(S) OBTAINED DURING PROCEDURE. Hip/Pelvis X-Ray 09/02/19 16:45 IMPRESSION: Right hip arthroplasty. There is some air in the soft tissues. Correlate for infection. Assessment and Plan - Diagnosis (1) Coronary artery disease Is this a current diagnosis for this admission?: Yes Plan: Continue Lopressor and aspirin. Condition is stable. (2) History of arthroplasty of right hip Is this a current diagnosis for this admission?: Yes Plan: Defer to surgery (3) Hypertension Is this a current diagnosis for this admission?: Yes Plan: Continue regimen of Lopressor BP acceptable (4) Obstructive sleep apnea Is this a current diagnosis for this admission?: Yes Plan: BiPAP while asleep. - Time Time Spent with patient: 15-24 minutes
[2019-09-03] MEDS ORDERED: VICTOZA 1.8 MG SUBCUT SCH (22:00)
--- NOTE | 2019-09-04 20:25 | PDOC DISCHARGE SUMMARY ---
Impression - Admit/DC Date/PCP Admission Date/Primary Care Provider: 09/02/19 10:41 CHRIS JANG Discharge Date: 09/03/19 - Discharge Diagnosis (1) History of arthroplasty of right hip Is this a current diagnosis for this admission?: Yes - Assessment Summary: Patient was brought to the hospital for an elective right total hip replacement. She had been having severe debilitating pain in the right hip for years and had difficulty ambulating and decreased quality of life due to pain with activities of daily living. After failing multiple other treatment options including conservative management and [id number] pain medications she decided to pursue right total hip replacement after discussion of risks and benefits in the clinic, she provided informed consent after all questions were answered. She was brought to the hospital 09/02/2019 for her elective right total hip replacement and following surgery she was admitted to the hospital for perioper ative medical management and pain control. She was doing very well physical therapy on postoperative day #1 and overall was doing well vital signs were stable and she was seen by the hospitalist for perioperative consult. She was deemed stable for discharge after a physical therapy evaluation to home. She was discharged home on 09/03/2019 in stable condition. All prescriptions were provided to her from our clinic and all postoperative instructions were given to her ahead of time. - Additional Information Resuscitation Status: Full Code Discharge Diet: Diabetic Discharge Activity: Activity As Tolerated, No Driving, Keep Legs Elevated, No Lifting/Push/Pulling, Supervised Activity, No tub bath, Walk Frequently Referrals: ALFA LAUGHLIN FNP [Primary Care Provider] - 09/10/19 1:40 pm DORIS MEZA JR, DO [ACTIVE PROVISIONAL STAFF] - 09/12/19 10:20 am Home Medications: Atorvastatin Calcium 40 mg PO QHS 03/05/18 Cholecalciferol (Vitamin D3) [Vitamin D3 1000 Unit Tablet] 1,000 unit PO DAILY 03/05/18 Cyanocobalamin (Vitamin B-12) [Vitamin B12] 1,000 mcg PO DAILY 03/05/18 Liraglutide [Victoza 2-Tacho] 1.8 mg SQ QHS 03/05/18 Potassium Chloride [Klor-Con 10] 10 meq PO DAILYP PRN 03/05/18 Aspirin [Aspirin 81 mg Chewable Tablet] 81 mg PO DAILY 08/18/19 Metoprolol Tartrate [Lopressor 25 mg Tablet] 25 mg PO Q12 08/18/19 Omeprazole Magnesium [Prilosec Otc] 20 mg PO DAILYP PRN 08/18/19 Furosemide [Lasix 20 mg Tablet] 20 mg PO DAILYP PRN 09/02/19 History of Present Illiness History of Present Illness: RJ MULLEN is a 69 year old female Physical Exam Vital Signs: Temp Pulse Resp BP Pulse Ox 99.9 F 90 18 109/48 L 90 L 09/03/19 12:30 09/03/19 12:30 09/03/19 12:30 09/03/19 12:30 09/03/19 12:30 Intake & Output 09/03/19 09/04/19 09/05/19 06:59 06:59 06:59 Intake Total 3900 Output Total 1300 Balance 2600 Weight 95 kg Results Laboratory Results: Potassium 3.9 mmol/L (3.6-5.0) 09/02/19 12:20 Glucose 124 mg/dL (75-110) H 09/02/19 12:20 POC Glucose 235 mg/dL (70-110) H 09/03/19 11:18 Blood Type A POSITIVE 09/02/19 12:33 Antibody Screen NEGATIVE 09/02/19 12:33 Impressions: Fluoroscopy 09/02/19 00:00 IMPRESSION: IMAGE(S) OBTAINED DURING PROCEDURE. Hip X-Ray 09/02/19 00:00 IMPRESSION: IMAGE(S) OBTAINED DURING PROCEDURE. Hip/Pelvis X-Ray 09/02/19 16:45 IMPRESSION: Right hip arthroplasty. There is some air in the soft tissues. Correlate for infection. Stroke Is this a Stroke Patient?: No Acute Heart Failure - Is this a Heart Failure Patient?: No
== END 2019-09-03 13:02 | disposition home health service (06) | DRG 470 ==
LOC: INOR 09-02 10:36 → UNDOADMIN 09-02 10:36 → INOR 09-02 10:41 → 4S 09-02 18:13
PROVIDERS: ADMIT Orthopaedic Surgery; ATTEND Orthopaedic Surgery
PROC: 0SR902Z Replacement of Right Hip Joint with Metal on Polyethylene Synthetic Substitute, Open Approach (ICD-10-PCS; principal; 2019-09-02 13:00)
DX: M16.11 Unilateral primary osteoarthritis, right hip (principal); E78.5 Hyperlipidemia, unspecified; I10 Essential (primary) hypertension; I95.81 Postprocedural hypotension; I48.91 Unspecified atrial fibrillation; E66.9 Obesity, unspecified; I25.10 Atherosclerotic heart disease of native coronary artery without angina pectoris; E11.9 Type 2 diabetes mellitus without complications; I44.7 Left bundle-branch block, unspecified; J45.909 Unspecified asthma, uncomplicated; G47.33 Obstructive sleep apnea (adult) (pediatric); K21.9 Gastro-esophageal reflux disease without esophagitis; Z79.82 Long term (current) use of aspirin; Z79.899 Other long term (current) drug therapy; Z88.1 Allergy status to other antibiotic agents; Z91.013 Allergy to seafood; Z88.8 Allergy status to other drugs, medicaments and biological substances
CPT/HCPCS: 01214; 36415; 82947; 82962; 84132; 86850; 86900; 86901; 94799; C1713; C1776; C1887; J0171; J0690; J1100; J1580; J1815; J1885; J2175; J2250; J2370; J2405; J2704; J3010; J3370; J3490; J7030; J7060; J7120; J7620

== ENCOUNTER → 2019-10-01 | Outpatient (CLI) | payer MEDICARE ==
--- NOTE | 2019-10-01 16:50 | RADIOLOGY REPORT (SQ) ---
EXAM DESCRIPTION: VENOUS UNILATERAL LOWER COMPLETED DATE/TIME: 10/01/2019 4:42 pm REASON FOR STUDY: RLE PAIN M25.571 PAIN IN RIGHT ANKLE AND JOINTS OF RIGHT FOOT COMPARISON: None. TECHNIQUE: Dynamic and static thornton scale and color images acquired of the right leg venous system. S elected spectral images acquired with additional compression and augmentation maneuvers. The contrala teral common femoral vein and saphenofemoral junction were also imaged. Images stored on PACS. LIMITATIONS: None. FINDINGS: COMMON FEMORAL: Normal phasicity, compression and augmentation. No visualized echogenic ma terial on thornton scale. No defects on color images. FEMORAL: Normal compression and augmentation. No visualized echogenic material on thornton scale. No defe cts on color images. POPLITEAL: Normal compression, augmentation. No visualized echogenic material on thornton scale. No defec ts on color images. CALF VESSELS: Normal compression, augmentation. No visualized echogenic material on thornton scale. No de fects on color images. GSV and SSV: Normal compression, augmentation. No visualized echogenic material on thornton scale. No def ects on color images. ANY DEEP VENOUS INSUFFICIENCY: Not evaluated. ANY EVIDENCE OF POPLITEAL CYST: No. OTHER: No other significant finding. CONTRALATERAL COMMON FEMORAL VEIN AND SAPHENOFEMORAL JUNCTION: Normal phasicity, compression and augmentation. No visualized echogenic material on thornton scale. No de fects on color images. IMPRESSION: 1. NO EVIDENCE OF DVT OR SVT IN THE RIGHT LEG. TECHNICAL DOCUMENTATION: JOB ID: [id number] [employer]- All Rights Reserved Reading location - IP/workstation name: [email or web address]
== END ==
LOC: SP 15:45
PROVIDERS: ATTEND Orthopaedic Surgery
DX: M25.571 Pain in right ankle and joints of right foot (principal)
CPT/HCPCS: 93971